=== PATIENT | female | born 1990 | race Two or more races ===

== ENCOUNTER → 2020-11-30 | Outpatient (CLI) | payer OTHER | END | disposition home or self-care (01) | LOC: PRENATAL 15:50 | PROVIDERS: ATTEND Obstetrics & Gynecology Maternal & Fetal Medicine | DX: O34.11 Maternal care for benign tumor of corpus uteri, first trimester (principal); O36.80X1 Pregnancy with inconclusive fetal viability, fetus 1; Z36.89 Encounter for other specified antenatal screening; Z3A.13 13 weeks gestation of pregnancy ==

== ENCOUNTER → 2021-01-25 | Outpatient (CLI) | payer OTHER | END | disposition home or self-care (01) | LOC: PRENATAL 13:00 | PROVIDERS: ATTEND Obstetrics & Gynecology Maternal & Fetal Medicine | DX: O35.0XX1 Maternal care for (suspected) central nervous system malformation in fetus, fetus 1 (principal); O35.3XX1 Maternal care for (suspected) damage to fetus from viral disease in mother, fetus 1; O98.512 Other viral diseases complicating pregnancy, second trimester; Z36.89 Encounter for other specified antenatal screening; Z3A.20 20 weeks gestation of pregnancy ==

== ENCOUNTER 2021-06-04 11:03 | Inpatient (IN) | payer OTHER ==
[~2021-06-04] VITALS: Ht 152.4 cm; Wt 2.7 kg
[2021-06-04] MEDS ORDERED: DHA100 MG PO (12:37)
[2021-06-04] MEDS ORDERED: PRENATAL CAPLE1 EAC1 PO (12:37)
[2021-06-07] MEDS ORDERED: PRENATAL CAPLE1 EAC1 PO (13:37)
[2021-06-07] MEDS ORDERED: IBUPROFEN800 MG PO (13:37)
[2021-06-07] MEDS ORDERED: OXYC1TAB9 PO (13:37)
[2021-06-07] MEDS ORDERED: DHA100 MG PO (13:37)
== END 2021-06-07 13:53 | disposition home or self-care (01) | DRG 788 ==
LOC: LDR 11:03 → OB/GYN 11:03 → O/R 11:03 → OB/GYN 06-05 03:06
PROVIDERS: ADMIT Obstetrics & Gynecology; ATTEND Obstetrics & Gynecology
PROC: 4A1HXFZ Monitoring of Products of Conception, Cardiac Rhythm, External Approach (ICD-10-PCS; 2021-06-04)
PROC: 10D00Z1 Extraction of Products of Conception, Low, Open Approach (ICD-10-PCS; principal; 2021-06-04 21:00)
DX: O36.8330 Maternal care for abnormalities of the fetal heart rate or rhythm, third trimester, not applicable or unspecified (principal); O69.2XX0 Labor and delivery complicated by other cord entanglement, with compression, not applicable or unspecified; Z3A.39 39 weeks gestation of pregnancy; Z37.0 Single live birth